=== PATIENT | female | born 1955 | race Caucasian/White ===

== ENCOUNTER 2017-03-09 08:14 | Inpatient (IN) | payer BC ==
[~2017-03-09] VITALS: Ht 161.3 cm; Wt 119.5 kg
[2017-03-09] VITALS (7 sets, daily range): BP systolic 171–195; BP diastolic 74–86
[~2017-03-09 08:14] MED LIST: ANAPROX DS550 M1 PO; BENICAR20 MG PO; CELEXA10 MG PO; DEXILANT60 MG PO; ELAVIL10 MG PO; GLUCOTROL10 MG PO; HYDROCODON-ACE1 EAC7 PO; LANSOPRAZOLE30 MG PO; LEVOTHYROXINE112 MCG PO; LEVOTHYROXINE150 MCG PO; MELOXICAM7.5 MG PO; METFORMIN HCL500 MG PO; MOTRIN800 MG PO; NEXIUM40 MG PO; ONE DAILY FOR1 EAC1 PO; SYNTHROID137 MCG PO; TRADJENTA5 MG PO; TYLENOL EXTRA500 MG PO; ZOCOR40 MG PO
[2017-03-09 10:04] LABS: POINT-OF-CARE METER ID UU14174212
[2017-03-09 12:29] LABS: POINT-OF-CARE METER ID UU13113675; POINT-OF-CARE USER ID 515036437
[2017-03-09 17:24] LABS: POINT-OF-CARE METER ID UU14162508
[2017-03-09 23:35] LABS: POINT-OF-CARE METER ID UU14162508
[2017-03-10] VITALS (8 sets, daily range): BP systolic 148–198; BP diastolic 68–101
[2017-03-10 05:35] LABS: POINT-OF-CARE METER ID UU14162508
[2017-03-10 06:48] LABS: HEMATOCRIT 42.5 % (36.0-46.0); MCH 27.3 PG (29.0-34.0); MCHC 32.5 G/DL (30.0-36.0); MCV 84.2 FL (83-99); PLATELET COUNT 235 K/uL (156-360); RBC DIS.WIDTH-CV 15.1 % (11.8-14.6); RBC DIS.WIDTH-SD 45.7 % (39-53); RED BLOOD COUNT 5.05 M/uL (3.80-5.20)
[2017-03-10 07:19] LABS: ANION GAP 10 MEQ/L (2-14); CHLORIDE 97 MEQ/L (99-109); GFR ESTIMATE (CALCULATED) 54 mL/min/; GLUCOSE 229 mg/dL (70-99); MAGNESIUM 1.4 mg/dl (1.3-2.7); POTASSIUM 4.2 MEQ/L (3.7-5.4); SAMPLE HEMOLYSIS CHECK 0; SAMPLE ICTERIC CHECK 0; SAMPLE LIPEMIA CHECK 0; SODIUM 135 MEQ/L (136-147); UREA NITROGEN (BUN) 14 mg/dL (9-23)
[2017-03-10] MEDS ORDERED: HYDROCODON-ACE1 EAC7 PO (08:29)
[2017-03-10 12:51] LABS: POINT-OF-CARE METER ID UU14162508
[2017-03-10 18:10] LABS: POINT-OF-CARE USER ID PUTDRM
[2017-03-10 23:37] LABS: POINT-OF-CARE METER ID UU14162508
[2017-03-11 03:44] VITALS: BP 168/73
[2017-03-11 06:34] LABS: POINT-OF-CARE METER ID UU14162508
[2017-03-11 06:51] LABS: HEMATOCRIT 43.1 % (36.0-46.0); MCH 26.8 PG (29.0-34.0); MCHC 32.3 G/DL (30.0-36.0); MCV 83.2 FL (83-99); MEAN PLAT.VOLUME 10.1 uM^3 (9.5-12.4); PLATELET COUNT 257 K/uL (156-360); RBC DIS.WIDTH-SD 45.2 % (39-53); RED BLOOD COUNT 5.18 M/uL (3.80-5.20); WHITE BLOOD COUNT 10.1 K/uL (4.1-10.2)
[2017-03-11 07:18] LABS: ANION GAP 11 MEQ/L (2-14); CHLORIDE 97 MEQ/L (99-109); GFR ESTIMATE (CALCULATED) > 59 mL/min/; GLUCOSE 216 mg/dL (70-99); MAGNESIUM 1.6 mg/dl (1.3-2.7); POTASSIUM 4.5 MEQ/L (3.7-5.4); SAMPLE HEMOLYSIS CHECK 0; SAMPLE ICTERIC CHECK 0; SAMPLE LIPEMIA CHECK 0; SODIUM 134 MEQ/L (136-147); UREA NITROGEN (BUN) 11 mg/dL (9-23)
[2017-03-11 07:30] VITALS: BP 169/79
== END 2017-03-11 11:00 | disposition home or self-care (01) | DRG 621 ==
LOC: 2SOUTH 08:14 → 2EAST 08:14 → 2SOUTH 14:22 → 2EAST 14:25 → 2SOUTH 14:48 → 2EAST 03-11 11:00
PROVIDERS: Surgery
DX: E66.01 Morbid (severe) obesity due to excess calories (principal); Z68.42 Body mass index [BMI] 45.0-49.9, adult; K44.9 Diaphragmatic hernia without obstruction or gangrene; I11.9 Hypertensive heart disease without heart failure; E03.9 Hypothyroidism, unspecified; E78.2 Mixed hyperlipidemia; E11.9 Type 2 diabetes mellitus without complications; I73.9 Peripheral vascular disease, unspecified; K21.9 Gastro-esophageal reflux disease without esophagitis; N39.3 Stress incontinence (female) (male); K58.9 Irritable bowel syndrome, unspecified; M51.9 Unspecified thoracic, thoracolumbar and lumbosacral intervertebral disc disorder; F41.9 Anxiety disorder, unspecified; Z79.84 Long term (current) use of oral hypoglycemic drugs; Z90.49 Acquired absence of other specified parts of digestive tract
CPT/HCPCS: 80048; 82948; 83735; 84100; 85027; 94799; J0131; J0360; J1100; J1170; J1580; J1644; J1650; J1815; J2250; J2270; J2405; J2710; J2765; J3010; J3480; J7050; J7120; S0020